=== PATIENT | female | born 1950 | race Caucasian/White ===

== ENCOUNTER 2017-02-09 15:32 | Inpatient (IN) | payer MEDICARE ==
[~2017-02-09] VITALS: Ht 162.6 cm; Wt 41.8 kg
[2017-02-09 15:33] VITALS: BP 178/96; PULSE 80; RESP 24; TEMP 97.8; O2SAT 97
[2017-02-09 15:52] VITALS: BP 181/98
[2017-02-09] MEDS ORDERED: ZOLO25TA PO (16:36)
[2017-02-09] MEDS ORDERED: LEVA250T14 PO (16:36)
[2017-02-09 16:39] VITALS: BP 154/73; PULSE 73; RESP 18; O2SAT 98
[2017-02-09 17:02] LABS: AUTOMATED NEUTROPHIL # 3.9 TH/MM3 (1.8-7.7); BASOPHIL # 0.1 TH/MM3 (0-0.2); BASOPHIL % 0.9 % (0.0-2.0); EOSINOPHIL # 0.1 TH/MM3 (0-0.4); EOSINOPHIL % 1.2 % (0.0-4.0); HEMO FLAGS DIFF FINAL; LYMPH % 22.1 % (9.0-44.0); LYMPHOCYTE # 1.3 TH/MM3 (1.0-4.8); MEAN CELL VOLUME 90.7 FL (80.0-100.0); MEAN CORPUSCULAR HEMOGLOBIN 31.4 PG (27.0-34.0); MEAN CORPUSCULAR HGB CONC 34.7 % (32.0-36.0); NEUT % 67.8 % (16.0-70.0); PLATELET COUNT 199 TH/MM3 (150-450); RED CELL DISTRIBUTION WIDTH 12.7 % (11.6-17.2); WHITE BLOOD COUNT 5.8 TH/MM3 (4.0-11.0)
--- NOTE | 2017-02-09 17:03 | PD ---
HPI Chief Complaint: Suicide Ideation/Attempt Time Seen by Provider: 16:01 Travel History International Travel<30 days: No Contact w/Intl Traveler<30days: No Traveled to known affect area: No History of Present Illness HPI The patient is a 66-year-old female who presents emergency department for psychiatric evaluation. The patient notes a history of depression with previous hospitalization in [place], [place] years ago. The patient states he then moved to [place] and recently moved to [place], [place] to live with her daughter. The patient states she is currently from her , has difficulty sleeping, decreased appetite, and states that recent stress has increased her depression. The patient feels like she no longer wants to live and has thoughts of suicide. The patient does have a previous history of suicide attempts with Elavil, states she has thought about taking pills once again. The daughter in the room states they have a gun in the house but it has been removed. The patient denies any hallucinations, delusions, alcohol use, or illicit drug use. She denies any current physical complaints, however, does state she's lost approximately 5 pounds over the last several months secondary to decreased appetite with her decreased sleeping and increased depression. PFSH Past Medical History Anxiety: Yes Depression: Yes Diminished Hearing: No Inguinal Hernia: Yes (right side ) Insomnia: Yes Medical other: Yes (hernia surgeries ) [place] [place]: Not Menopausal: Yes Past Surgical History Hysterectomy: Yes (1986) Social History Alcohol Use: No Tobacco Use: No Substance Use: No Allergies-Medications (Allergen,Severity, Reaction): Coded Allergies: Sulfa (Verified Allergy, Intermediate, 02/09/17) Reported Meds & Prescriptions Reported Meds & Active Scripts Active Reported Levaquin (Levofloxacin) 250 Mg Tablet Zoloft (Sertraline HCl) 25 Mg Tab 25 Mg PO DAILY Review of Systems Except as stated in HPI: all other systems reviewed are Neg General / Constitutional: Positive: Weight Loss Psychiatric: Positive: Anxiety, Depression, Suicidal Ideations, No: Substance Abuse Physical Exam Narrative GENERAL: Awake, alert, 66 year-old female who appears her stated age and is tearful. SKIN: Focused skin assessment warm/dry. HEAD: Atraumatic. Normocephalic. EYES: Mild injection secondary to crying. ENT: No nasal bleeding or discharge. Mucous membranes pink and moist. NECK: Trachea midline. No JVD. CARDIOVASCULAR: Regular rate and rhythm. No murmur appreciated. RESPIRATORY: No accessory muscle use. Clear to auscultation. Breath sounds equal bilaterally. GASTROINTESTINAL: Abdomen soft, non-tender, nondistended. No rebound tenderness. MUSCULOSKELETAL: No obvious deformities. No clubbing. No cyanosis. No edema. NEUROLOGICAL: Awake and alert. No obvious cranial nerve deficits. Motor grossly within normal limits. Normal speech. PSYCHIATRIC: Tearful, insight and judgment are normal. Data Data Last Documented VS Vital Signs Date Time Temp Pulse Resp B/P Pulse Ox O2 Delivery O2 Flow Rate FiO2 02/09/17 16:39 73 18 154/73 98 Room Air 02/09/17 15:33 97.8 Orders Complete Blood Count With Diff (02/09/17 16:23) Comprehensive Metabolic Panel (02/09/17 16:23) Thyroid Stimulating Hormone (02/09/17 16:23) Urinalysis - C+S If Indicated (02/09/17 16:23) Psych Screen (02/09/17 16:23) Drug Screen, Random Urine (02/09/17 16:23) Labs Laboratory Tests Test 02/09/17 02/09/17 16:35 16:45 White Blood Count 5.8 TH/MM3 Red Blood Count 4.30 MIL/MM3 Hemoglobin 13.5 GM/DL Hematocrit 39.0 % Mean Corpuscular Volume 90.7 FL Mean Corpuscular Hemoglobin 31.4 PG Mean Corpuscular Hemoglobin 34.7 % Concent Red Cell Distribution Width 12.7 % Platelet Count 199 TH/MM3 Mean Platelet Volume 8.0 FL Neutrophils (%) (Auto) 67.8 % Lymphocytes (%) (Auto) 22.1 % Monocytes (%) (Auto) 8.0 % Eosinophils (%) (Auto) 1.2 % Basophils (%) (Auto) 0.9 % Neutrophils # (Auto) 3.9 TH/MM3 Lymphocytes # (Auto) 1.3 TH/MM3 Monocytes # (Auto) 0.5 TH/MM3 Eosinophils # (Auto) 0.1 TH/MM3 Basophils # (Auto) 0.1 TH/MM3 CBC Comment DIFF FINAL Differential Comment Sodium Level 139 MEQ/L Potassium Level 3.8 MEQ/L Chloride Level 104 MEQ/L Carbon Dioxide Level 23.8 MEQ/L Anion Gap 11 MEQ/L Blood Urea Nitrogen 9 MG/DL Creatinine 0.91 MG/DL Estimat Glomerular Filtration 62 ML/MIN Rate Random Glucose 96 MG/DL Calcium Level 9.3 MG/DL Total Bilirubin 0.5 MG/DL Aspartate Amino Transf 22 U/L (AST/SGOT) Alanine Aminotransferase 19 U/L (ALT/SGPT) Alkaline Phosphatase 72 U/L Total Protein 7.1 GM/DL Albumin 4.2 GM/DL Thyroid Stimulating Hormone 0.809 uIU/ML 3rd Gen Urine Color YELLOW Urine Turbidity CLEAR Urine pH 5.5 Urine Specific [place] 1.016 Urine Protein NEG mg/dL Urine Glucose (UA) NEG mg/dL Urine Ketones NEG mg/dL Urine Occult Blood NEG Urine Nitrite NEG Urine Bilirubin NEG Urine Urobilinogen LESS THAN 2.0 MG/DL Urine Leukocyte Esterase TRACE Urine RBC 5 /hpf Urine WBC 1 /hpf Urine Mucus FEW /lpf Microscopic Urinalysis Comment CULT NOT INDICATED Urine Opiates Screen NEG Urine Barbiturates Screen NEG Urine Amphetamines Screen NEG Urine Benzodiazepines Screen NEG Urine Cocaine Screen NEG Urine Cannabinoids Screen NEG [facility] Medical Decision Making Medical Screen Exam Complete: Yes Emergency Medical Condition: Yes Medical Record Reviewed: Yes Interpretation(s) Laboratory Tests Test 02/09/17 02/09/17 16:35 16:45 White Blood Count 5.8 TH/MM3 Red Blood Count 4.30 MIL/MM3 Hemoglobin 13.5 GM/DL Hematocrit 39.0 % Mean Corpuscular Volume 90.7 FL Mean Corpuscular Hemoglobin 31.4 PG Mean Corpuscular Hemoglobin 34.7 % Concent Red Cell Distribution Width 12.7 % Platelet Count 199 TH/MM3 Mean Platelet Volume 8.0 FL Neutrophils (%) (Auto) 67.8 % Lymphocytes (%) (Auto) 22.1 % Monocytes (%) (Auto) 8.0 % Eosinophils (%) (Auto) 1.2 % Basophils (%) (Auto) 0.9 % Neutrophils # (Auto) 3.9 TH/MM3 Lymphocytes # (Auto) 1.3 TH/MM3 Monocytes # (Auto) 0.5 TH/MM3 Eosinophils # (Auto) 0.1 TH/MM3 Basophils # (Auto) 0.1 TH/MM3 CBC Comment DIFF FINAL Differential Comment Sodium Level 139 MEQ/L Potassium Level 3.8 MEQ/L Chloride Level 104 MEQ/L Carbon Dioxide Level 23.8 MEQ/L Anion Gap 11 MEQ/L Blood Urea Nitrogen 9 MG/DL Creatinine 0.91 MG/DL Estimat Glomerular Filtration 62 ML/MIN Rate Random Glucose 96 MG/DL Calcium Level 9.3 MG/DL Total Bilirubin 0.5 MG/DL Aspartate Amino Transf 22 U/L (AST/SGOT) Alanine Aminotransferase 19 U/L (ALT/SGPT) Alkaline Phosphatase 72 U/L Total Protein 7.1 GM/DL Albumin 4.2 GM/DL Thyroid Stimulating Hormone 0.809 uIU/ML 3rd Gen Urine Color YELLOW Urine Turbidity CLEAR Urine pH 5.5 Urine Specific [place] 1.016 Urine Protein NEG mg/dL Urine Glucose (UA) NEG mg/dL Urine Ketones NEG mg/dL Urine Occult Blood NEG Urine Nitrite NEG Urine Bilirubin NEG Urine Urobilinogen LESS THAN 2.0 MG/DL Urine Leukocyte Esterase TRACE Urine RBC 5 /hpf Urine WBC 1 /hpf Urine Mucus FEW /lpf Microscopic Urinalysis Comment CULT NOT INDICATED Urine Opiates Screen NEG Urine Barbiturates Screen NEG Urine Amphetamines Screen NEG Urine Benzodiazepines Screen NEG Urine Cocaine Screen NEG Urine Cannabinoids Screen NEG Differential Diagnosis Differential diagnosis includes depressive disorder NOS, major depression, adjustment reaction, stress reaction, bipolar affective disorder, dysthymic disorder. Narrative Course Labs are drawn and sent and psychiatric evaluation was ordered. Labs are noted , unremarkable. Patient is medically clear to be evaluated by psychiatry. Disposition as per psych. Diagnosis Primary Impression: Major depressive disorder Qualified Code: F33.2 - Severe episode of recurrent major depressive disorder , without psychotic features Condition: Stable Mendel Whitfield MD Feb 09, 2017 17:03
[2017-02-09 17:16] LABS: BLOOD, URINE NEG (NEG); COMMENT (UR) CULT NOT INDICATED; CULTURE IF INDICATED CULT NOT INDICATED; GLUCOSE,URINE NEG (NEG); KETONE, URINE NEG (NEG); MUCUS URINE FEW /lpf (OCC); NITRITE,URINE NEG (NEG); PH, URINE 5.5 (5.0-8.5); URINE COLOR YELLOW (YELLW/STRAW)
[2017-02-09 17:22] LABS: AMPHETAMINE, URINE NEG (NEG); BARBITURATES, URINE NEG (NEG); COCAINE, URINE NEG (NEG)
[2017-02-09 17:26] LABS: ANION GAP 11 MEQ/L (5-15); AST (GOT) 22 U/L (15-37); BICARBONATE 23.8 MEQ/L (21.0-32.0); BLOOD UREA NITROGEN 9 MG/DL (7-18); CHLORIDE 104 MEQ/L (98-107); GLOMERULAR FILTRATION RATE 62 ML/MIN (>89); POTASSIUM 3.8 MEQ/L (3.5-5.1); SODIUM (NA) 139 MEQ/L (136-145)
[2017-02-09 17:27] LABS: ALT (GPT) 19 U/L (10-53)
[2017-02-09 17:36] LABS: ALKALINE PHOSPHATASE 72 U/L (45-117); TOTAL BILIRUBIN ADULT 0.5 MG/DL (0.2-1.0)
[2017-02-09 18:10] VITALS: BP 146/67; PULSE 65; RESP 18; O2SAT 95
[2017-02-09] MEDS ORDERED: LORazepam 2 MG/ML VIAL - age > 65 yrs IM PRN (22:15)
[2017-02-09] MEDS ORDERED: LORazepam 0.5 MG TAB age > 65 yrs PO PRN (22:15)
[2017-02-09] MEDS ORDERED: ALUMINUM/MAGNESIUM/SIMETH 30 ML CUP PO PRN (22:15)
[2017-02-09] MEDS ORDERED: MAGNESIUM HYDROXIDE SUSP 30 ML CUP PO PRN (22:15)
[2017-02-09] MEDS ORDERED: ACETAMINOPHEN 325 MG TAB PO PRN (22:15)
[2017-02-09 22:55] VITALS: BP 167/79; PULSE 62; RESP 16; TEMP 98; O2SAT 99
[2017-02-10 05:56] VITALS: BP 120/58; PULSE 77; RESP 18; TEMP 98.3; O2SAT 95
[2017-02-10 11:19] LABS: HDL CHOLESTEROL 63.8 MG/DL (40.0-60.0)
--- NOTE | 2017-02-10 14:53 | HHI.HP ---
Provisional Diagnosis Admission Date Feb 09, 2017 at 22:05 [place] I. 1. Major depressive disorder, recurrent severe without psychotic features [place] II. Deferred [place] V. GAF is 30 presently Certification of Person's Competence To Provide Express and Informed Consent I have personally examined Arpita Truong , a person being served at [facility] on, Feb 10, 2017 14:53. Express and informed consent means consent voluntarily given in writing, by a competent person, after sufficient explanation and disclosure of the subject matter involved to enable the person to make a knowing and willful decision without any element of force, fraud, deceit, duress, or other form of constraint or coercion. This person is 18 years of age or older, is not now known to be incompetent to consent to treatment with a guardian advocate, and does not have a health care surrogate or proxy currently making medical treatment decisions. I have found this person to be one of the following: [x] Competent to provide express and informed consent, as defined above, for voluntary admission to this facility and is competent to provide express and informed consent for treatment. He/she has the consistent capacity to make well reasoned, willful, and knowing decisions concerning his or her medical or mental health treatment. The person fully and consistently understands the purpose of the admission for examination/placement and is fully capable of personally exercising all rights assured under [place] Incompetent to provide express and informed consent to voluntary admission, and this is incompetent to provide express and informed consent to treatment. The person must be transferred to involuntary status and a petition for a guardian advocate filed with the Circuit Court. [] Refusing to provide express and informed consent to voluntary admission but is competent to provide express and informed consent for treatment. The person must be discharged or transferred to involuntary status. Form shall be completed within 24 hours of a person's arrival at the receiving facility and filed in the clinical record of each person: 1. Admitted on a voluntary basis 2. Permitted to provide express and informed consent to his/her own treatment 3. Allowed to transfer from involuntary to voluntary status 4. Prior to permitting a person to consent to his or her own treatment after having been previously found incompetent to consent to treatment. History of Present Illness Capacity: Has Capacity HPI Ms. Berg is a 66-year-old female with a reported history of depression who presented voluntarily to the ED for psychiatric evaluation. Reviewing the electronic medical record, it appears that this is patient's first visit to [facility]. Patient seen and examined with nurse. Chart reviewed. Case discussed with nursing staff. On my examination today, the patient says that she feels like she needs to "hit the reset button." She cites numerous psychosocial stressors including recently moving to [facility], separation from her of 17 years and looking for work. She says that over the last week or so "sadness took over." She endorses sleep disturbance and anxious rumination. Appetite poor. Somewhat anhedonic. Some hopeless and guilty feelings. She says that she began to contemplate suicide afternoon. Denies any current suicidal ideation but was thinking about overdosing as she has in the past. No homicidal ideation. No current or prior hypomanic/manic symptoms. Denies audiovisual hallucinations. No evident delusions. The remainder of the psychiatric ROS is negative. Past psychiatric history: The patient reports a history of depression. She sees a psychotherapist but is not currently under the care of a psychiatrist. She reports that she was admitted in 1994 following an Elavil overdose, and these constitute her only psychiatric admission and suicide attempt, respectively. Family history: The patient reports that her mother struggled with depression. Her father had an alcohol problem. She denies a family history of suicide. Chemical dependency history: The patient denies any history of abuse of drugs or alcohol. Social history: Patient reports that she lives with her daughter. She has been 17 years and is in the process of . She also has a son. She came down to [place] from [place] to be with her children. She previously worked in the [employer]. She has a first year of college education. Denies any history. Denies any legal history. She reports that she did keep firearm but her daughter has secured it. Review of Systems Except as stated in HPI: all other systems reviewed are Neg Past Psych History Psychological trauma history No reported trauma history Violence risk - others (6 mos) Lower imminent risk Violence risk - self (6 mos) Elevated. Worsening depression and onset of suicidal ideation. 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 She reports that she was previously on antibiotics including rifampin but has been told by her physicians that she could discontinue these and has not taken them in some time. She was recently started on Levaquin for a possible pneumonia. Reported Medications Levofloxacin (Levaquin)250 Mg TabletUnknown Dose PO DAILY 02/09/17 Sertraline (Zoloft)25 Mg Tab25 Mg PO DAILY #30 TAB Ref 0 02/09/17 Current Medications Medications (Trade) Dose Ordered Sig/Diandra Route Start Time Stop Time Status Last Admin (Ativan) 0.5 mg Q12H PRN PO 02/09/17 22:15 02/09/17 23:28 (Ativan Inj) 0.5 mg Q12H PRN IM 02/09/17 22:15 (Tylenol) 650 mg Q4H PRN PO 02/09/17 22:15 (Milk Of Magnesia Liq) 30 ml DAILY PRN PO 02/09/17 22:15 (Mag-Al Plus Susp Liq) 30 ml Q6H PRN PO 02/09/17 22:15 Family History See above Social History See above Patient's Strengths (min. 2) In a monitored setting. Verbally fluent. Physical Exam Physical exam completed by ED provider. On my examination today, the patient appears to be in no acute physical distress. No abnormal motor movements noted. Laboratories and vital signs reviewed: Vital Signs Vital Signs Date Time Temp Pulse Resp B/P Pulse Ox O2 Delivery O2 Flow Rate FiO2 02/10/17 05:56 98.3 77 18 120/58 95 02/09/17 18:10 Room Air Lab Results Item Value Date Time White Blood Count 5.8 TH/MM3 02/09/17 1635 Hemoglobin 13.5 GM/DL 02/09/17 1635 Platelet Count 199 TH/MM3 02/09/17 1635 Sodium Level 139 MEQ/L 02/09/17 1635 Potassium Level 3.8 MEQ/L 02/09/17 1635 Chloride Level 104 MEQ/L 02/09/17 1635 Carbon Dioxide Level 23.8 MEQ/L 02/09/17 1635 Blood Urea Nitrogen 9 MG/DL 02/09/17 1635 Creatinine 0.91 MG/DL 02/09/17 1635 Aspartate Amino Transf (AST/SGOT) 22 U/L 02/09/17 1635 Alanine Aminotransferase (ALT/SGPT) 19 U/L 02/09/17 1635 Alkaline Phosphatase 72 U/L 02/09/17 1635 25-Hydroxy Vitamin D Total 29.0 ng/ML L 02/10/17 0934 Thyroid Stimulating Hormone 3rd Gen 0.809 uIU/ML 02/09/17 1635 Vitamin B12 Level 420 PG/ML 02/10/17 0934 Urine toxicology negative. Urinalysis bland. Mental Status Examination Patient is in hospital gown. She is well groomed. She is awake and alert and oriented 3. No evidence of delirium. No abnormal motor movements noted. Speech is within normal limits for rate, tone and volume. Language and fund of knowledge are at least average. Focus and concentration intact. Memory grossly intact on clinical exam. Mood depressed and affect restricted and consistent with stated mood. Thought process linear. No loosening of associations. No evident delusional material. Denies audiovisual hallucinations. Denies suicidal ideation at this time but admits to recently entertaining thoughts of overdose. No homicidal ideation. Insight and judgment are fair. Assessment & Plan Problem List: (1) Major depressive disorder ICD Code: F32.9 Assessment & Plan This is a 66-year-old female with psychiatric history as reported above who presents on a voluntary basis. Patient reports 1 week of worsening low mood and onset of suicidal ideation. She reports significant difficulties with sleep and appetite, and her BMI is quite reduced. After discussing her pharmacotherapeutic options for her depression, we agreed that a trial of mirtazapine is reasonable given her difficulties with sleep and appetite. Patient requires psychiatric hospitalization at this time for safety, observation and stabilization. Admit inpatient. Voluntary status. Initiate Remeron 15 mg at bedtime. Ativan as needed for anxiety, trazodone as needed for sleep. I will continue patient' s Levaquin. Consult to the hospitalist. Check a chest x-ray in light of history of MAC and reported recent diagnosis of PNA. I have checked with the live in housekeeper nanny who has checked with infection control, and no special isolation is required in this patient at this time. Vitals every shift. Counselor to see. Disposition planning. Estimated length of stay: 3-5 days. Discharge Planning Pending psychiatric stabilization Request HC Surrog/Guard Advoc?: No Problem Qualifiers (1) Major depressive disorder: Qualified Code: F33.2 - Severe episode of recurrent major depressive disorder, without psychotic features Jordan Pereira MD Feb 10, 2017 14:53
[2017-02-10 15:48] VITALS: BP 134/64; PULSE 74; RESP 18; TEMP 99.1; O2SAT 93
[2017-02-10] MEDS ORDERED: PILL SPLITTER OTHER PRN (16:15)
[2017-02-10] MEDS: MIRTAZAPINE 15 MG TAB PO SCH (20:49)
[2017-02-10] MEDS ORDERED: traZODone HCL 50 MG TAB PO SCH (21:00)
--- NOTE | 2017-02-10 22:41 | RADRPT ---
EXAM DATE/TIME: 02/10/2017 22:08 [facility] COMPARISON: No previous studies available for comparison. INDICATIONS : Evaluate lung status post positive tubeculosis test. MEDICAL HISTORY : Mycobacterium avium complex. SURGICAL HISTORY : None. ENCOUNTER: Initial ACUITY: 1 day PAIN SCORE: 0/10 LOCATION: Bilateral chest FINDINGS: Frontal and lateral views of the chest demonstrate a normal-sized cardiac silhouette. Lungs are hyper inflated with prominent retrosternal airspace. There is airspace opacity in the left upper lobe and i n the right upper lobe. No pleural effusion or pneumothorax is identified. Bones and soft tissues dem onstrate no acute finding. CONCLUSION: Abnormal airspace opacities in the left upper lobe and right upper lobe. Given the clinical history, TB or nontuberculous mycobacterial infection (MAC) could have this appearance. Alternately, nonspecif ic infections could have this appearance as well. Suggest correlating with prior imaging studies to a ssess for change. Consider followup chest x-ray to document stability /resolution or chest CT for fur ther evaluation. Chi Hardwick MD on February 10, 2017 at 22:36 Board Certified Radiologist. This report was verified electronically.
[2017-02-11 06:02] VITALS: BP 100/58; PULSE 70; RESP 17; TEMP 98; O2SAT 96
[2017-02-11] MEDS: LEVOFLOXACIN 250 MG TAB PO SCH (08:51)
--- NOTE | 2017-02-11 13:44 | HHI.PYPN ---
Subjective Remarks Patient seen in her room with nurse Rajiv, and medical student Srikanth, chart reviewed. gives history of major depressive symptoms, the past few weeks initially starting as her breakup with her third after they moved to a custodial type home in [place]. He stayed there she moved back here to be closer to her children. The depression has become worse since she and her daughter with whom she lives moved into to [facility] apartment but very noisy neighbors upstairs. Patient does, prior history of sleep disturbances aggravated by the move, past history of depression, crying spells, loss of appetite with increased anhedonia, decreased concentration and attention, decreased coping skills, the some increased hopelessness and helplessness. She did deny voices or visions with this there is the suicidal ideation. Patient did sitter prior suicide attempt the mid with depression. Patient is now on trazodone and Remeron. Said she felt quite sedated this morning we'll decrease her trazodone at 12.5 mg at at bedtime continue the Remeron at 15 mg monitor another 24-48 hours Review of Systems Constitutional: COMPLAINS OF: Fatigue, Weight loss, Change in appetite Endocrine: DENIES: Abnorml menstrual pattern, Heat/cold intolerance, Polydipsia , Polyuria, Polyphagia Eyes: DENIES: Blurred vision, Diplopia, Eye inflammation, Eye pain, Vision loss , Photosensitivity, Double Vision Ears, nose, mouth, throat: DENIES: Tinnitus, Hearing loss, Vertigo, Nasal discharge, Oral lesions, Throat pain, Hoarseness, Ear Pain, Running Nose, Epistaxis, Sinus Pain, Toothache, Odynophagia Respiratory: COMPLAINS OF: Cough (baseline due to her MAC tuberculosis), Shortness of breath (chronic due to herMAC tuberculosis) Cardiovascular: DENIES: Chest pain, Palpitations, Syncope, Dyspnea on Exertion , PND, Lower Extremity Edema, Orthopnea, Claudication Gastrointestinal: DENIES: Abdominal pain, Black stools, Bloody stools, Constipation, Diarrhea, Nausea, Vomiting, Difficulty Swallowing, Anorexia Genitourinary: DENIES: Abnormal vaginal bleeding, Dysmenorrhea, Dyspareunia, Sexual dysfunction, Urinary frequency, Urinary incontinence, Urgency, Hematuria , Dysuria, Nocturia, Vaginal discharge Musculoskeletal: DENIES: Joint pain, Muscle aches, Stiffness, Joint Swelling, Back pain, Neck pain Integumentary: DENIES: Abnormal pigmentation, Pruritus, Rash, Nail changes, Breast masses, Breast skin changes, Nipple discharge Hematologic/lymphatic: DENIES: Bruising, Lymphadenopathy Immunologic/allergic: DENIES: Eczema, Urticaria Neurologic: DENIES: Abnormal gait, Headache, Localized weakness, Paresthesias, Seizures, Speech Problems, Tremor, Poor Balance Psychiatric: COMPLAINS OF: Depression Objective Alert: Yes [place]: Person, Place, Date Mood: Calm, Depressed Affect: Other (decreased range and intensity) Memory Intact: Comment (fair) Hallucinations: Other (denies) Delusions: No (denies) Delusion Type: Other (denies) Suicidal: Ideation (denies at this time) Homicidal: Ideation (denies) Insight/Judgment Poor Vitals/IOs Vital Signs Date Time Temp Pulse Resp B/P Pulse Ox O2 Delivery O2 Flow Rate FiO2 02/11/17 06:02 98.0 70 17 100/58 96 02/09/17 18:10 Room Air Assessment & Plan Problem List: (1) Major depressive disorder ICD Code: F32.9 Assessment & Plan Estimated LOS: days patient remains depressed though now states suicidality is resolved. Appears somewhat sedated from the at bedtime meds will decrease the trazodone 12.5 mg. Justification for Cont. Inpt. At this time patient will decompensate the placed in a lower level of care Discharge Planning To be determined Request HC Surrog/Guard Advoc?: No Problem Qualifiers (1) Major depressive disorder: Qualified Code: F33.2 - Severe episode of recurrent major depressive disorder, without psychotic features Chi Parnell MD Feb 11, 2017 13:44
--- NOTE | 2017-02-11 15:50 | HHI.PR ---
Objective Objective Results - Vital Signs Date Time Temp Pulse Resp B/P Pulse Ox O2 Delivery O2 Flow Rate FiO2 02/11/17 06:02 98.0 70 17 100/58 96 Result Diagram: 02/09/17 1635 02/09/17 1635 A/P Assessment and Plan dictated, Consult Pulmonary Medicaine for expert opinion Hemoptysis Viry Payne Feb 11, 2017 15:50
--- NOTE | 2017-02-11 16:14 | MB ---
cc: JENNIFER BURK DATE OF CONSULTATION 02/11/2017 DATE OF 1950 DATE OF ADMISSION 02/09/2017 REASON FOR CONSULTATION I.e. medical management. HISTORY OF THE PRESENT ILLNESS This is a pleasant 66-year-old white female who has been staying with her daughter since September of 2016. She is currently from the and considering a divorce and has been struggling with bouts of depression. The patient has noted an approximate 10 pound weight loss, decreased appetite, difficulty sleeping and states that her stress levels have increased her depression. According to the record the patient denies any hallucinations, delusions, use of alcohol or illicit drug use but she has had some medical problems in the past which include atypical tuberculosis. She has been treated with multiple TB drugs and followed when she lived in [place], [place] by Dr. Hill and ID specialist. Since she has been going through her recent psychological issues she has not taken any medications for the past six months. She did see an internal medicine doctor this past week who wanted her to follow up on an outpatient basis with pulmonology to see what her current medical needs are related to her treatment regimen. Her psychiatric evaluation, according to the record, is voluntary and she was permitted to provide and express informed consent for her own treatment. She does have a significant history of depression and according to the record had contemplated suicide. Currently the patient denies any further ideations of suicide. She is alert, awake, cooperative and a fairly good historian. The patient was diagnosed with MAC and had seen a doctor this past week. She did note, two different times, coughing up small amounts of bright red blood plugs. Denies any bleeding since. PAST MEDICAL HISTORY Includes: 1. MAC. 2. Atypical tuberculosis. 3. Inguinal hernias times two on the right side. 4. History of depression. 5. History of suicidal ideations but since has denied any further considerations. 6. Weight loss. 7. Insomnia. 8. Immunodeficiency disease. PAST SURGICAL HISTORY 1. Hysterectomy. 2. Inguinal hernia repair times two on the right side. F ALLERGIES SULFA DRUGS. MEDICATIONS 1. Levaquin. 2. Zoloft. SOCIAL HISTORY Currently the patient is still but has been from her since September 2016. She denies any alcohol, tobacco or illicit drug use. She is currently living with her daughter. REVIEW OF SYSTEMS A 14 point review was obtained. Positives noted include weight loss, some shortness of breath related to her MAC. The patient did note coughing up some blood on two different occasions this past week. The patient was diagnosed with MAC and had seen a doctor this past week. She did note, two different times, coughing up small amounts of bright red blood plugs. Denies any bleeding since. She is positive for depression otherwise systems are negative or unremarkable. PHYSICAL EXAMINATION VITAL SIGNS: Temperature 98, pulse 70, respiratory rate 18, blood pressure 100/58 and 134/64. Initially on admission on the blood pressure was 154/73 but the patient does state that she was stressed during that period of time. O2 saturation 96% on room air. GENERAL: Thin, borderline frail, white female looks to be her stated age, sitting up in a chair. She is alert and oriented and a fairly good historian. SKIN: Pale pink. Warm and dry. Turgor is thin and dry. HEENT: Atraumatic, normocephalic. Pupils equal, round, reactive to light and accommodation at 2. Oral cavity is clear and moist. Tongue is midline. NECK: Supple. CARDIOVASCULAR: S1-S2. Regular rate and rhythm. No murmurs, rubs, or gallops. She has no edema and her pulses are intact. LUNGS: Are essentially clear anteriorly and posteriorly with no wheezes, rhonchi or rales. ABDOMEN: Flat, soft, nontender, nondistended. Active bowel sounds. MUSCULOSKELETAL: Moves her extremities with purpose. No obvious deformities. NEUROLOGIC: She is answering questions appropriately. Speech is clear. PSYCHOLOGIC: Mood and affect are appropriate. LABORATORY DATA Diagnostic data on 02/09/2017 WBC count 5.8, RBC 4.3, hemoglobin 13.5, hematocrit 39, platelet count 199. Differential blood count is normal. Chemistry, sodium 139, potassium 3.8, chloride 104, carbon dioxide 23.8, BUN 9, creatinine 0.91. GFR 62. Random glucose 96. Calcium 9.3. Bilirubin 0.5, 0.5. AST 22, ALT 19, alkaline phosphatase 72. Total protein 7.1. Albumin 4.2. Abnormals are LDL cholesterol at 100, HDL at 63.8. Vitamin B12 is 420. Vitamin D level is 29. TSH is 0.809. Urine normal trends, no culture indicated. IMAGING A chest x-ray showed abnormal airspace opacities in the left and right upper lobes. Given the clinical history, MAC could give this appearance. Alternatively nonspecific infection could give this appearance. Followup is recommended for further evaluation. ASSESSMENT AND PLAN 1. MAC atypical tuberculosis. 2. Hemoptysis. 3. Depression, major depressive disorder. 4. Anxiety and increased stressors. Our plan is to monitor her vital signs and lab work during this psychiatric evaluation and treatment phase. According to the records this appears to be a short planned admission stay from a psychological standpoint. The patient initially had systolic blood pressure of 154 and 146 and 167 on admission. She is now down to 120-134 least amount noted is 100/58. Initially according to staff members the patient was very stressed when her blood pressure was in the high range. The patient states that she has no dizzy spells and has no symptoms of her blood pressure giving her any problems. We will continue to monitor blood pressure during this hospital stay for any symptoms. The patient also notes a previous history of hemoptysis and was told per a recent internal med PCP doctor she saw last week that she may need followup with pulmonology for possible bronchoscopy and further testing concerning her MAC. The patient currently is having no hemoptysis. This case will be discussed in detail with Dr. Burk and we will decide whether the patient will need further inpatient testing or if she can followup on an outpatient basis. If the patient begins to have any further hemoptysis, her course of treatment will be based on her symptoms and the management needed. To my knowledge the patient is full code, full aggressive care and we will continue to monitor. Dictated by: ADOLPH Downs Jennifer Burk MD JP/KK /3:10 PM /3:39 PM Patient seen and examined as above Labs medications and radiological data reviewed previous notes reviewed Discussed with patient in detail. As per patient she has approximately 14-15 month of MAC treatment as out patient. Patient knows names of MAC antibiotics very well. Plan for the medical consult Plan of care discussed with ADOLPH Discussed with CORINNE YOST
--- NOTE | 2017-02-11 16:39 | PD.TTN ---
Present for Treatment Team Treatment Team Staff: Provider Patient Problems 1. Discharge planning 2. Medication compliance 3. Knowledge deficit 4. Lack of coping skills Progress Toward Goals Provider Input: Dr. Parnell's treatment team met to discuss patient's treatment plan, medication, and discharge plan. Patient has prior history of sleep disturbances aggravated by the move, history of depression, crying, loss of appetite with anhedonia, decreased concentration and attention, along with decreased coping skills, Psych Therapist Input: Patient was found sitting in the dayroom watching tv. Patient is oriented x5. Patient presents calm, sad, depressed, affect blunted. Patient's speech was clear, organized and appropriate. Patient's tone, rate, and volume were in the normal range. Patient made fair eye contact. Patient does not present internally stimulated or with any delusional content. Patient denies suicidal and homicidal ideation. Patient is eating well medication compliant. Once discharged patient will follow up with [facility]. Patient will return home with patient's daughter. Shayla ZarateI Feb 11, 2017 16:39
[2017-02-11 18:00] VITALS: BP 128/71; PULSE 81; RESP 17; TEMP 98.3; O2SAT 98
[2017-02-11] MEDS: MIRTAZAPINE 15 MG TAB PO SCH (20:56)
[2017-02-11] MEDS ORDERED: traZODone HCL 50 MG TAB PO SCH (21:00)
--- NOTE | 2017-02-11 21:19 | MB ---
cc: MARIANA BELL DATE OF CONSULTATION 02/11/[address] Burk REASON FOR CONSULTATION Evaluation for lung infiltrate and MAC. HISTORY OF THE PRESENT ILLNESS Ms. Truong is a 67-year-old female who moved from [place]. She is undergoing divorce proceedings with her and has a lot of depression. She has a history of MAC and she was seeing a customs officer over there. She has had MAC since 7 years. She has been treated multiple times with rifampin, ethambutol and Biaxin. The last treatment was over six months ago. Because of the worsening of depression symptoms, she was admitted in this hospital. She denies any fevers, chills, night sweats. Two times she has had blood tinged sputum. She has lost weight which she attributes to her poor eating because of her underlying depression. LABORATORY DATA She had a workup done. Her white blood cell count 5.8, hemoglobin 13.5, hematocrit 39, MCV 89, platelet count is 199. Sodium 139, potassium 3.8, chloride 104, CO2 23, BUN 9, creatinine 0.91. IMAGING Her chest x-ray shows abnormal airspace especially in the left upper lobe and right upper lobe concerning for a mycobacterial infection. PAST MEDICAL HISTORY Significant for: 1. History of MAC infection, treated. 2. Inguinal hernia. 3. Depression. 4. Insomnia. MEDICATIONS She is currently takin. Trazodone 12.5 mg at nighttime. 2. Levaquin 250 mg a day. 3. Mirtazapine 15 mg at nighttime. 4. Lorazepam p.r.n. ALLERGIES SHE IS ALLERGIC TO SULFA. SOCIAL HISTORY She is . No history of smoking, alcohol abuse. 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 FAMILY HISTORY She has three children. She lives with her daughter here now. REVIEW OF SYSTEMS She has lost some weight because of poor eating. No seizure, stroke or epilepsy. No DVT or pulmonary embolism. PHYSICAL EXAMINATION GENERAL: Thin-built, anxious female not in acute distress. VITAL SIGNS: Blood pressure 128/71, heart rate 81, respirations 17, temperature 98.3. HEENT: Examination pupils are equal and reactive to light. Oral mucosa and nasal mucosa normal. NECK: Supple. JVP not raised. CHEST: Air entry equal bilaterally. No rhonchi. CARDIOVASCULAR: S1-S2 normal. . EXTREMITIES: No edema. IMPRESSION 1. Right upper lobe, left upper lobe lung infiltrate concerning for atypical mycobacterial infection. She does have diagnosis of MAC and has been treated multiple times over the last seven years. Currently she does not have any constitutional symptoms. 2. Anxiety, depression. 3. Weight loss. PLAN I discussed with the patient. She had a CT scan of the chest done as an outpatient. I will review that one and we will monitor her clinically. If she has any constitutional symptoms or activity of disease, then we will consider treating her, otherwise we will monitor her because she has been treated multiple times for this MAC. Further treatment will depend on the course in the hospital. Thank you Dr. Burk for this consultation. MD CARL Oliva/MAHOGANY /6:52 PM /9:07 PM
[2017-02-12 06:21] VITALS: BP 134/64; PULSE 73; RESP 18; TEMP 97.9; O2SAT 95
--- NOTE | 2017-02-12 07:03 | EKG ---
Date Performed: 02/10/2017 Time Performed: 12:10:50 PTAGE: 66 years EKG: Sinus rhythm POSSIBLE LEFT ATRIAL ENLARGEMENT MARKED RIGHT AXIS DEVIATION PATTERN CONSISTENT WITH PULMONARY DISEA SE INCOMPLETE RIGHT BUNDLE BRANCH BLOCK NONSPECIFIC ST & T-WAVE ABNORMALITY ABNORMAL ECG NO PREVIOUS TRACING DOCTOR: Royce Perla Interpretating Date/Time 02/12/2017 07:02:13
[2017-02-12] MEDS: LEVOFLOXACIN 250 MG TAB PO SCH (08:40)
[2017-02-12] MEDS ORDERED: LEVA250T14 PO (12:39)
[2017-02-12] MEDS ORDERED: TRAZ50TA12 PO (12:39)
[2017-02-12] MEDS ORDERED: MIRTA15 PO (12:39)
--- NOTE | 2017-02-12 12:46 | HHI.DS ---
Psychiatry Discharge Summary Inpatient Psychiatric care?: Yes Advance Directive: No Reason Not Provided: not interested Mental Health AdvanceDirective: No Health Care Proxy: No Admission Admission Date Feb 09, 2017 at 22:05 Admission Diagnosis: (1) Major depressive disorder ICD Code: F32.9 Brief History Ms. Berg is a 66-year-old female with a reported history of depression who presented voluntarily to the ED for psychiatric evaluation. Reviewing the electronic medical record, it appears that this is patient's first visit to [facility]. Patient seen and examined with nurse. Chart reviewed. Case discussed with nursing staff. On my examination today, the patient says that she feels like she needs to "hit the reset button." She cites numerous psychosocial stressors including recently moving to [facility], separation from her of 17 years and looking for work. She says that over the last week or so "sadness took over." She endorses sleep disturbance and anxious rumination. Appetite poor. Somewhat anhedonic. Some hopeless and guilty feelings. She says that she began to contemplate suicide afternoon. Denies any current suicidal ideation but was thinking about overdosing as she has in the past. No homicidal ideation. No current or prior hypomanic/manic symptoms. Denies audiovisual hallucinations. No evident delusions. The remainder of the psychiatric ROS is negative. Past psychiatric history: The patient reports a history of depression. She sees a psychotherapist but is not currently under the care of a psychiatrist. She reports that she was admitted in 1994 following an Elavil overdose, and these constitute her only psychiatric admission and suicide attempt, respectively. Family history: The patient reports that her mother struggled with depression. Her father had an alcohol problem. She denies a family history of suicide. Chemical dependency history: The patient denies any history of abuse of drugs or alcohol. Social history: Patient reports that she lives with her daughter. She has been 17 years and is in the process of . She also has a son. She came down to [place] from [place] to be with her children. She previously worked in the skilled nursing. She has a first year of college education. Denies any history. Denies any legal history. She reports that she did keep firearm but her daughter has secured it. Tobacco Use In Past 30 Days: No Tobacco Past 30 Days Alcohol Use: Monthly or Less Hospital Course Patient showed cooperation with the medication in the milieu from day 1. Responded well to our talk therapy also. Showing good insight and processing of her behaviors and relationships. Patient slept well with the trazodone, she now denies suicidality homicidality voices or visions. She will be staying with her daughter who will be taking a leave of absence to help her. At this time I feel patient met the maximum benefit of this hospitalization Discharge the patient today to herself, Rx 1 month, follow [facility] outpatient medication management. Also referred to [facility] outpatient support groups Results Blood Pressure 134 / 64 Vital Signs Date Time Temp Pulse Resp B/P Pulse Ox O2 Delivery O2 Flow Rate FiO2 02/12/17 06:21 97.9 73 18 134/64 95 02/09/17 18:10 Room Air Laboratory Tests Test 02/09/17 02/09/17 02/10/17 16:35 16:45 09:34 Estimat Glomerular Filtration 62 ML/MIN (>89) Rate Urine Leukocyte Esterase TRACE (NEG) Urine RBC 5 /hpf (0-3) Urine Mucus FEW /lpf (OCC) LDL Cholesterol 100 MG/DL (0-99) HDL Cholesterol 63.8 MG/DL (40.0-60.0) 25-Hydroxy Vitamin D Total 29.0 ng/ML (30-100) Laboratory Results Test 02/10/17 09:34 Triglycerides Level 83 MG/DL (42-150) Cholesterol Level 180 MG/DL (120-200) LDL Cholesterol 100 MG/DL (0-99) HDL Cholesterol 63.8 MG/DL (40.0-60.0) Summary of Procedures None done Imaging Last Impressions Chest X-Ray 02/10/17 0000 Signed Impressions: Service Date/Time: Friday, February 10, 2017 22:08 - CONCLUSION: Abnormal airspace opacities in the left upper lobe and right upper lobe. Given the clinical history, TB or nontuberculous mycobacterial infection (MAC) could have this appearance. Alternately, nonspecific infections could have this appearance as well. Suggest correlating with prior imaging studies to assess for change. Consider followup chest x-ray to document stability /resolution or chest CT for further evaluation. Chi Hardwick MD Pending results at discharge: No Medications # of Antipsychotic meds at D/C: 0 Approp Antipsych med options 1 - Minimum of three failed multiple trials of monotherapy. 2 - Documented plan to taper to monotherapy due to previous use of multiple meds OR cross-taper in progress at D/C. 3 - Documentation of augmentation of Clozapine. 4 - Justification other than those listed in allowable values 1-3, document here : Discharge Discharge Date: Feb 12, 2017 Discharge Diagnosis: (1) Major depressive disorder Diagnosis: Principal ICD Code: F32.9 Mental Status Exam at Disch Alert oriented thin slender white female, cooperative she is normal active, her mood is euthymic to mildly dysphoric with good range and intensity of affect. Speech rate and rhythm are within normal limits no formal thought disorders. No audiovisual hallucinations. No delusions. Insight and judgment is fair cognition grossly intact Pt Condition on Discharge: Stable Discharge Disposition: Discharge Home Discharge Instructions Diet Instructions: As Tolerated, No Restrictions Activities you can perform: Regular-No Restrictions Scheduled Appointment: Joaquin German Appointment Date: Feb 13, 2017 Appointment Time: 7:30am Discharge Time > 30 minutes (talk therapy session and time to prepare discharge summary took a total of about 40 minutes) Discharge/Advance Care Plan Health Problems: (1) Major depressive disorder Goals to promote your health * To prevent worsening of your condition and complications * To maintain your health at the optimal level Directions to meet your goals Take your medications as prescribed Follow your dietary instruction Follow activity as directed Keep your appointments as scheduled Take your immunizations and boosters as scheduled If your symptoms worsen call your PCP, if no PCP go to Urgent Care Center or Emergency Room For 18/03 questions related to your inpatient stay or results of tests pending at discharge, please contact Dr. Chi Parnell at Smoking is Dangerous to Your Health. Avoid second hand smoking Problem Qualifiers (1) Major depressive disorder: Qualified Code: F33.2 - Severe episode of recurrent major depressive disorder, without psychotic features Chi Parnell MD Feb 12, 2017 12:45
--- NOTE | 2017-02-12 13:11 | HHI.PR ---
Subjective Remarks alert calm vitals normal trends going home Objective Objective Results - Vital Signs Date Time Temp Pulse Resp B/P Pulse Ox O2 Delivery O2 Flow Rate FiO2 02/12/17 06:21 97.9 73 18 134/64 95 02/11/17 18:00 98.3 81 17 128/71 98 Result Diagram: 02/09/17 1635 02/09/17 1635 ROS General: Other (8 point ROS done. any positives noted) GI: BM (bowel regimen) Neuro/MS: Other (anxiety controlled) Physical Exam Physical Exam PHYSICAL EXAMINATION GENERAL: This is a slim female who appears to be in no acute distress. She is alert and awake, HEAD: Normocephalic, atraumatic OROPHARYNGEAL: Oropharynx without erythema or edema. NECK: Supple. No nuchal rigidity or lymphadenopathy. Trachea midline without deviation. CARDIAC: Regular rhythm, regular rate, S1 and S2 are heard. LUNGS: Clear to auscultation bilaterally. No wheezes or rhonchi noted ABDOMEN: Soft, nontender, no organomegaly or masses. Bowel sounds are heard in all four quadrants. No rebound. No guarding. EXTREMITIES: no edema NEUROLOGICAL: Patient mood and affect appropriate. No focal deficit SKIN:Warm and moist A/P Assessment and Plan 1. MAC atypical tuberculosis. 2. Hemoptysis. 3. Depression, major depressive disorder. 4. Anxiety and increased stressors. Mac Patient had hemoptysis approximately one week before admission to hospital. Had been off her medications for approximately 6 months for her Mac. Pulmonary consult done for his expert opinion and further recommendations. We will see her as an outpatient. Reviewed recent CT scan patient had done. No further medications to be started for now Hemoptysis, none since admission Depression, medical management per psych team. She is discharging today Anxiety, none noted patient's affect is calm Stable from a medical standpoint for discharge Viry Payne Feb 12, 2017 13:11
== END 2017-02-12 14:10 | disposition home or self-care (01) | DRG 885 ==
LOC: NEPE 15:32 → NEDA 22:05 → H260 22:45
PROVIDERS: ADMIT Psychiatry & Neurology Psychiatry; ATTEND Psychiatry & Neurology Psychiatry
DX: F33.2 Major depressive disorder, recurrent severe without psychotic features (principal); D84.9 Immunodeficiency, unspecified; R45.851 Suicidal ideations; R04.2 Hemoptysis; F41.9 Anxiety disorder, unspecified; G47.00 Insomnia, unspecified; R91.8 Other nonspecific abnormal finding of lung field; R63.4 Abnormal weight loss
CPT/HCPCS: 71020; 80053; 80061; 80307; 81001; 82306; 82607; 84443; 85025; 85652; 93005